=== PATIENT | female | born 1955 | race Caucasian/White ===

== ENCOUNTER 2017-03-10 12:56 | Emergency (ER) | payer BC, MEDICARE ==
[~2017-03-10] VITALS: Ht 157.5 cm; Wt 58.8 kg
[~2017-03-10 12:56] MED LIST: CITA40TA12 PO; GABA100C8 PO; MORP10CA10 PO; TRAM50TA2 PO
[2017-03-10] MEDS ORDERED: DEXAMETHASONE 4 MG/ML, 1ML ONE ×3 (13:41→13:50)
[2017-03-10] MEDS ORDERED: DEXAMETHASONE 4 MG/ML, 1ML PO ONE (14:00)
[2017-03-10 15:10] LABS: PATH.CAST-FLAG NOT PRESENT; SPERM-FLAG NOT PRESENT; SRC-FLAG NOT PRESENT; XTAL-FLAG NOT PRESENT; YLC-FLAG NOT PRESENT
[2017-03-10 15:49] VITALS: BP 120/78
== END 2017-03-10 15:53 | disposition home or self-care (01) ==
LOC: ED 14:36
DX: J20.9 Acute bronchitis, unspecified (principal); N30.00 Acute cystitis without hematuria; B37.3 Candidiasis of vulva and vagina; B96.89 Other specified bacterial agents as the cause of diseases classified elsewhere; K21.9 Gastro-esophageal reflux disease without esophagitis; M19.90 Unspecified osteoarthritis, unspecified site
CPT/HCPCS: 71020; 81001; 87077; 87086; 99285; J1100; 87186

== ENCOUNTER 2017-05-31 16:42 | Emergency (ER) | payer BC, MEDICARE ==
[~2017-05-31] VITALS: Ht 157.5 cm; Wt 57.0 kg
[~2017-05-31 16:42] MED LIST changes: +GABA-826 PO; -GABA100C8 PO
[2017-05-31] MEDS ORDERED: HYDROmorphone 1 MG/ML, 1ML ONE (17:47)
[2017-05-31] MEDS ORDERED: HYDROmorphone 1 MG/ML, 1ML IM PRN (18:00)
[2017-05-31 18:11] VITALS: BP 134/82
== END 2017-05-31 18:13 | disposition home or self-care (01) ==
LOC: ED 18:07
DX: G89.29 Other chronic pain (principal); M54.5 Low back pain; M54.32 Sciatica, left side; M54.31 Sciatica, right side; K21.9 Gastro-esophageal reflux disease without esophagitis; Z90.49 Acquired absence of other specified parts of digestive tract; Z90.710 Acquired absence of both cervix and uterus
CPT/HCPCS: 96372; 99283; J1170

== ENCOUNTER 2018-11-15 17:15 | Observation (INO) | payer BC, MEDICARE ==
[~2018-11-15] VITALS: Ht 157.5 cm; Wt 66.3 kg
[~2018-11-15 17:15] MED LIST changes: -CITA40TA12 PO; +IBUP-1623 PO; +NAPR220C2 PO
[2018-11-15 18:20] LABS: MICROSCOPIC AUTO
[2018-11-15 18:26] LABS: BASOPHILS # (AUTO) 0.03 x10^3/uL (0-0.1); BASOPHILS % (AUTO) 0 % (0-1); EOSINOPHILS % (AUTO) 2 % (1-7); LYMPHOCYTES # (AUTO) 2.74 x10^3/uL (1-3.4); LYMPHOCYTES % (AUTO) 32 % (22-44); MD NO; MEAN CORPUSCULAR HEMOGLOBIN 31.5 pg (27.0-34.8); MEAN CORPUSCULAR HGB CONC 34.4 g/dL (32.4-35.8); MEAN CORPUSCULAR VOLUME 91.6 fL (80-100); MEAN PLATELET VOLUME 8.1 fL (7.4-10.4); MONOCYTES # (AUTO) 0.54 x10^3/uL (0.2-0.8); MONOCYTES % (AUTO) 6 % (2-9); NEUTROPHILS # (AUTO) 4.96 x10^3/uL (1.8-6.8); NEUTROPHILS % (AUTO) 59 % (42-75); PLATELET COUNT 303 x10^3/uL (130-400); RED BLOOD COUNT 4.02 x10^6/uL (3.82-5.3); RED CELL DISTRIBUTION WIDTH 12.3 % (9.6-15.2)
[2018-11-15 18:26] LABS: CULTURE INDICATED? YES
[2018-11-15 18:37] LABS: ALBUMIN 3.7 g/dL (3.4-5.0); ANION GAP 6 mmol/L (5-15); CALCIUM 8.9 mg/dL (8.5-10.1); CHLORIDE 105 mmol/L (98-107); CREATININE 0.67 mg/dL (0.55-1.02); INTERNATIONAL NORMALIZED RATIO 0.95 (0.93-1.1); PROTHROMBIN TIME 10.1 Seconds (9.6-11.5)
[2018-11-15 18:40] LABS: TROPONIN I < 0.015 ng/mL (0.000-0.045)
--- NOTE | 2018-11-15 18:56 | NUR ---
REPORT GIVEN TO ROBERTO
--- NOTE | 2018-11-15 19:03 | NUR ---
DR LINDSEY AT BEDSIDE UPDATING PT ON POC
[2018-11-15] MEDS ORDERED: KETOROLAC 30 MG/1 ML IV PRN (20:00)
[2018-11-15] MEDS ORDERED: DOCUSATE 100 MG CAPSULE PO PRN (20:00)
[2018-11-15] MEDS ORDERED: NITROGLYCERIN 0.4 MG BOTTLE (25 TABS) SL PRN (20:00)
[2018-11-15] MEDS ORDERED: TEMAZEPAM 15 MG CAPSULE PO PRN (20:00)
[2018-11-15] MEDS ORDERED: ONDANSETRON 2MG/ML, 2ML IVPush PRN (20:00)
[2018-11-15] MEDS ORDERED: LIDODERM 5% PATCH TD PRN (20:00)
[2018-11-15] MEDS ORDERED: LABETALOL 5MG/ML, 20ML IVPush PRN (20:00)
[2018-11-15] MEDS ORDERED: ENOXAPARIN 40 MG/0.4 ML SQ SCH (20:00)
--- NOTE | 2018-11-15 20:09 | NUR ---
REPORT GIVEN TO GUNNAR MCELROY
[2018-11-15] MEDS: ACETAMINOPHEN 325 MG TABLET PO PRN (21:33)
[2018-11-15] MEDS: CITALOPRAM 20 MG TABLET PO SCH (21:33)
[2018-11-15] MEDS: GABAPENTIN 300 MG CAPSULE PO SCH (21:33)
[2018-11-15 21:50] VITALS: BP 137/88
[2018-11-16 00:22] VITALS: BP 116/72
[2018-11-16 01:22] LABS: TROPONIN I < 0.015 ng/mL (0.000-0.045)
[2018-11-16] MEDS: ACETAMINOPHEN 325 MG TABLET PO PRN (05:22)
[2018-11-16 07:07] VITALS: BP 110/73
[2018-11-16 07:36] LABS: TROPONIN I < 0.015 ng/mL (0.000-0.045)
[2018-11-16] MEDS ORDERED: REGADENOSON 0.4 MG/5 ML SYRINGE ONE (08:11)
[2018-11-16] MEDS: CITALOPRAM 20 MG TABLET PO SCH (08:42)
[2018-11-16] MEDS: GABAPENTIN 300 MG CAPSULE PO SCH (08:42)
[2018-11-16] MEDS ORDERED: CITA40TA12 PO (21:56)
== END 2018-11-16 13:59 | disposition home or self-care (01) ==
LOC: ED 18:33 → EDIP 19:05 → UNDOADMOB 19:05 → INTOOBSV 19:05 → OBSVTOIN 19:05 → EDIP 19:46 → 5SO 20:22 → EDIP 20:22 → UNDODISOB 11-16 13:59
PROVIDERS: ADMIT Hospitalist; ATTEND Hospitalist
DX: R07.89 Other chest pain (principal); F33.0 Major depressive disorder, recurrent, mild; K21.9 Gastro-esophageal reflux disease without esophagitis; K58.9 Irritable bowel syndrome, unspecified; L29.9 Pruritus, unspecified; Z82.3 Family history of stroke; Z80.42 Family history of malignant neoplasm of prostate; Z87.440 Personal history of urinary (tract) infections; Z87.891 Personal history of nicotine dependence; Z90.710 Acquired absence of both cervix and uterus
CPT/HCPCS: 36415; 71045; 78452; 80048; 81001; 82040; 83880; 84484; 85025; 85610; 85730; 87086; 90471; 90656; 93005; 93017; 93306; 96372; 99284; A9502; C9898; G0378; J1650; J2785; 99285

== ENCOUNTER 2019-10-23 17:47 | Emergency (ER) | payer BC, MEDICARE ==
[~2019-10-23] VITALS: Ht 157.5 cm; Wt 68.0 kg
[~2019-10-23 17:47] MED LIST changes: +CITA40TA12 PO
[2019-10-23 18:23] VITALS: BP 115/89
[2019-10-23] MEDS ORDERED: ALBUTEROL/IPRATROPIUM 2.5MG/0.5MG, 3 ML NPPB ONE (18:30)
[2019-10-23] MEDS ORDERED: ALBU18HF INH (18:32)
[2019-10-23 19:00] LABS: RAPID INFLUENZA A Negative (Negative); RAPID INFLUENZA B Negative (Negative)
== END 2019-10-23 20:17 | disposition home or self-care (01) ==
LOC: ED 19:56
DX: J45.901 Unspecified asthma with (acute) exacerbation (principal); J00 Acute nasopharyngitis [common cold]; J20.9 Acute bronchitis, unspecified; K21.9 Gastro-esophageal reflux disease without esophagitis; Z87.891 Personal history of nicotine dependence
CPT/HCPCS: 71046; 87081; 87400; 87880; 94640; 99284; J7620

== ENCOUNTER 2020-02-01 20:20 | Emergency (ER) | payer BC, MEDICARE ==
[~2020-02-01] VITALS: Ht 157.5 cm; Wt 69.1 kg
[~2020-02-01 20:20] MED LIST changes: +ALBU18HF INH
--- NOTE | 2020-02-01 20:42 | NUR ---
RASH ON BUTT AND L THIGH. NEW DETERGENT LATELYL. SEEN AT , GIVEN PREDNISONE, STEROID, BENADRYL. ALSO R LQ ABD PAIN. GIVEN ABX FOR BLADDER INFECTION FROM PRIMARY CARE. ALSO C/O COUGH THAT STARTED THIS AM. A&OX4 GCS 15. NO SOB. CALL MOS[facility]A IN REACH. SAUL CHRISTIAN IN ROOM FOR EVAL.
[2020-02-01] MEDS ORDERED: HYDROcodone/APAP 5/325 TABLET PO ONE (21:00)
[2020-02-01] MEDS ORDERED: SODIUM CHLORIDE FLUSH 10ML SYR IVF ONE (21:00)
[2020-02-01] MEDS ORDERED: HYDROcodone/APAP 5/325 TABLET ONE (21:05)
--- NOTE | 2020-02-01 21:16 | NUR ---
CT PENDING LAB/CREATINE.
[2020-02-01 21:41] LABS: BASOPHILS # (AUTO) 0.03 x10^3/uL (0-0.1); BASOPHILS % (AUTO) 0 % (0-1); EOSINOPHILS % (AUTO) 2 % (1-7); LYMPHOCYTES # (AUTO) 2.62 x10^3/uL (1-3.4); LYMPHOCYTES % (AUTO) 25 % (22-44); MD NO; MEAN CORPUSCULAR HEMOGLOBIN 30.7 pg (27.0-34.8); MEAN CORPUSCULAR HGB CONC 33.6 g/dL (32.4-35.8); MEAN CORPUSCULAR VOLUME 91.4 fL (80-100); MEAN PLATELET VOLUME 8.9 fL (7.4-10.4); MONOCYTES # (AUTO) 0.57 x10^3/uL (0.2-0.8); MONOCYTES % (AUTO) 6 % (2-9); NEUTROPHILS % (AUTO) 67 % (42-75); PLATELET COUNT 246 x10^3/uL (130-400); RED BLOOD COUNT 3.99 x10^6/uL (3.82-5.3); RED CELL DISTRIBUTION WIDTH 13.1 % (9.6-15.2)
[2020-02-01 21:43] LABS: MICROSCOPIC AUTO
[2020-02-01 21:46] LABS: CULTURE INDICATED? YES
[2020-02-01 21:51] LABS: ALANINE AMINOTRANSFERASE 25 U/L (12-78); ALBUMIN 3.5 g/dL (3.4-5.0); ANION GAP 7 mmol/L (5-15); CALCIUM 8.4 mg/dL (8.5-10.1); CHLORIDE 106 mmol/L (98-107); CREATININE 0.73 mg/dL (0.55-1.02)
[2020-02-01 21:53] LABS: ALKALINE PHOSPHATASE 97 U/L (45-117); BILIRUBIN,TOTAL 0.1 mg/dL (0.2-1.0); TOTAL PROTEIN 7.3 g/dL (6.4-8.2)
--- NOTE | 2020-02-01 21:53 | NUR ---
report to martha rose. as
--- NOTE | 2020-02-01 21:54 | NUR ---
REPORT RECEIVED FROM GUNNAR SMITH. PLAN OF CARE DISCUSSED
[2020-02-01] MEDS ORDERED: OMNIPAQUE 350 MG/ML, 100ML BOTTLE ONE (22:38)
--- NOTE | 2020-02-01 22:56 | NUR ---
PATIENT RESTING ON GURNEY, RESPIRATIONS EVEN AND UNLABORED. VSS, NAD
[2020-02-01 23:15] VITALS: BP 110/59
[2020-02-01] MEDS ORDERED: FAMOTIDINE 20 MG TABLET ONE (23:28)
[2020-02-01] MEDS ORDERED: FAMOTIDINE 20 MG TABLET PO ONE (23:30)
--- NOTE | 2020-02-01 23:34 | NUR ---
PIV REMOVED, PATIENT MEDICATED PER EMAR, TOLERATED WELL
--- NOTE | 2020-02-01 23:42 | NUR ---
Patient given discharge instructions and they have confirmed that they understand the instructions. Patient ambulatory with steady gait.
== END 2020-02-01 23:44 | disposition home or self-care (01) ==
LOC: ED 21:01
DX: R21 Rash and other nonspecific skin eruption (principal); R10.9 Unspecified abdominal pain; T78.40XA Allergy, unspecified, initial encounter; Z87.891 Personal history of nicotine dependence; Z90.89 Acquired absence of other organs; Z90.49 Acquired absence of other specified parts of digestive tract; Z90.710 Acquired absence of both cervix and uterus; X58.XXXA Exposure to other specified factors, initial encounter
CPT/HCPCS: 36415; 71045; 74177; 80053; 81001; 83690; 85025; 87086; 99285; Q9967

== ENCOUNTER 2020-06-20 13:19 | Emergency (ER) | payer BC, MEDICARE ==
[~2020-06-20] VITALS: Ht 157.5 cm; Wt 65.9 kg
[2020-06-20 13:20] VITALS: BP 137/72
[2020-06-20 14:15] LABS: BASOPHILS # (AUTO) 0.08 x10^3/uL (0-0.1); BASOPHILS % (AUTO) 1 % (0-1); EOSINOPHILS # (AUTO) 0.21 x10^3/uL (0-0.4); EOSINOPHILS % (AUTO) 3 % (1-7); LYMPHOCYTES # (AUTO) 2.21 x10^3/uL (1-3.4); LYMPHOCYTES % (AUTO) 31 % (22-44); MD NO; MEAN CORPUSCULAR HEMOGLOBIN 30.4 pg (27.0-34.8); MEAN CORPUSCULAR HGB CONC 32.9 g/dL (32.4-35.8); MEAN CORPUSCULAR VOLUME 92.6 fL (80-100); MEAN PLATELET VOLUME 8.8 fL (7.4-10.4); MONOCYTES # (AUTO) 0.54 x10^3/uL (0.2-0.8); MONOCYTES % (AUTO) 8 % (2-9); NEUTROPHILS # (AUTO) 4.15 x10^3/uL (1.8-6.8); NEUTROPHILS % (AUTO) 58 % (42-75); PLATELET COUNT 253 x10^3/uL (130-400); RED BLOOD COUNT 4.26 x10^6/uL (3.82-5.3); RED CELL DISTRIBUTION WIDTH 12.4 % (9.6-15.2)
[2020-06-20 14:27] LABS: ALANINE AMINOTRANSFERASE 26 U/L (12-78); ALBUMIN 3.4 g/dL (3.4-5.0); ANION GAP 5 mmol/L (5-15); CALCIUM 8.3 mg/dL (8.5-10.1); CHLORIDE 107 mmol/L (98-107); CREATININE 0.66 mg/dL (0.55-1.02)
[2020-06-20 14:29] LABS: ALKALINE PHOSPHATASE 99 U/L (45-117); BILIRUBIN,TOTAL 0.3 mg/dL (0.2-1.0); TOTAL PROTEIN 7.3 g/dL (6.4-8.2)
[2020-06-20 15:04] LABS: MICROSCOPIC AUTO
== END 2020-06-20 16:26 | disposition home or self-care (01) ==
LOC: ED 14:11
DX: N30.00 Acute cystitis without hematuria (principal); R10.11 Right upper quadrant pain; G89.29 Other chronic pain; M43.17 Spondylolisthesis, lumbosacral region; M51.34 Other intervertebral disc degeneration, thoracic region; M43.27 Fusion of spine, lumbosacral region; K21.9 Gastro-esophageal reflux disease without esophagitis; J45.909 Unspecified asthma, uncomplicated; Z90.49 Acquired absence of other specified parts of digestive tract; Z90.710 Acquired absence of both cervix and uterus
CPT/HCPCS: 36415; 72072; 72110; 74018; 80053; 81001; 83690; 85025; 87086; 93005; 99285

== ENCOUNTER 2020-08-26 15:45 | Emergency (ER) | payer BC, MEDICARE ==
[~2020-08-26] VITALS: Ht 157.5 cm; Wt 66.8 kg
--- NOTE | 2020-08-26 16:26 | NUR ---
PA-Shira HAS EVALUATED IN TRIAGE
--- NOTE | 2020-08-26 16:26 | NUR ---
EKG IN TRIAGE
[2020-08-26 16:44] LABS: BASOPHILS % (AUTO) 1 % (0-1); EOSINOPHILS % (AUTO) 3 % (1-7); LYMPHOCYTES % (AUTO) 29 % (22-44); MEAN CORPUSCULAR HEMOGLOBIN 31.1 pg (27.0-34.8); MEAN CORPUSCULAR HGB CONC 33.7 g/dL (32.4-35.8); MEAN PLATELET VOLUME 8.3 fL (7.4-10.4); MONOCYTES % (AUTO) 7 % (2-9); NEUTROPHILS % (AUTO) 60 % (42-75); PLATELET COUNT 293 x10^3/uL (130-400); RED CELL DISTRIBUTION WIDTH 12.6 % (9.6-15.2)
[2020-08-26 16:46] LABS: MD NO
[2020-08-26 16:54] LABS: ALANINE AMINOTRANSFERASE 29 U/L (12-78); ALBUMIN 3.7 g/dL (3.4-5.0); ANION GAP 3 mmol/L (5-15); CALCIUM 8.8 mg/dL (8.5-10.1); CHLORIDE 106 mmol/L (98-107)
[2020-08-26 16:57] LABS: ALKALINE PHOSPHATASE 115 U/L (45-117); BILIRUBIN,TOTAL 0.3 mg/dL (0.2-1.0); TOTAL PROTEIN 8.2 g/dL (6.4-8.2)
--- NOTE | 2020-08-26 18:25 | NUR ---
TO ROOM FROM LOBBY. NAD.
--- NOTE | 2020-08-26 18:52 | NUR ---
UA COLLECTED AND SENT
--- NOTE | 2020-08-26 18:55 | NUR ---
THIS IS A 64 YO FEMALE COMING IN WITH C/O LIGHTHEADEDNESS, OCCASIONAL COUGHING, HEADACHE, "MY KIDNEYS HURT AND I THINK I HAVE A BLADDER INFECTION", AND SORE THROAT X APPROX 1 WEEK. PATIENT C/O DYSURIA, LEFT SIDED FLANK PAIN TENDER TO PALPATION. A&OX4, ALL MONITORING IN PLACE, VSS, NADN.
[2020-08-26 18:57] LABS: MICROSCOPIC NOT IND
--- NOTE | 2020-08-26 19:05 | NUR ---
ALL RESULTS BACK, PATIENT UP FOR RECHECK
[2020-08-26 20:15] VITALS: BP 126/71
--- NOTE | 2020-08-26 20:15 | NUR ---
Patient given discharge instructions and they have confirmed that they understand the instructions. Patient ambulatory with steady gait.
== END 2020-08-26 20:19 | disposition home or self-care (01) ==
LOC: ED 15:50
DX: S39.012A Strain of muscle, fascia and tendon of lower back, initial encounter (principal); J45.909 Unspecified asthma, uncomplicated; K21.9 Gastro-esophageal reflux disease without esophagitis; R00.0 Tachycardia, unspecified; Z90.49 Acquired absence of other specified parts of digestive tract; Z87.891 Personal history of nicotine dependence; X58.XXXA Exposure to other specified factors, initial encounter; Y93.89 Activity, other specified; Y92.89 Other specified places as the place of occurrence of the external cause; Y99.8 Other external cause status
CPT/HCPCS: 36415; 71045; 80053; 81003; 85025; 87081; 87880; 93005; 99285

== ENCOUNTER 2020-11-06 07:06 | Emergency (ER) | payer BC, MEDICARE ==
[~2020-11-06] VITALS: Ht 154.9 cm; Wt 68.0 kg
[2020-11-06] MEDS ORDERED: KETOROLAC 30 MG/1 ML ONE (07:23)
[2020-11-06] MEDS ORDERED: ONDANSETRON 2MG/ML, 2ML ONE (07:24)
[2020-11-06] MEDS ORDERED: SODIUM CHLORIDE 0.9% 1,000ML IVBOLUS ONE (07:30)
[2020-11-06] MEDS ORDERED: ONDANSETRON 2MG/ML, 2ML IVPush ONE (07:30)
[2020-11-06] MEDS ORDERED: KETOROLAC 30 MG/1 ML IVPush ONE (07:30)
[2020-11-06] MEDS ORDERED: SODIUM CHLORIDE FLUSH 10ML SYR IVF ONE (07:30)
[2020-11-06 07:56] LABS: BASOPHILS % (AUTO) 1 % (0-1); EOSINOPHILS % (AUTO) 4 % (1-7); LYMPHOCYTES % (AUTO) 30 % (22-44); MEAN CORPUSCULAR HEMOGLOBIN 31.1 pg (27.0-34.8); MEAN CORPUSCULAR HGB CONC 33.7 g/dL (32.4-35.8); MEAN PLATELET VOLUME 8.2 fL (7.4-10.4); MONOCYTES % (AUTO) 7 % (2-9); NEUTROPHILS % (AUTO) 58 % (42-75); PLATELET COUNT 301 x10^3/uL (130-400); RED BLOOD COUNT 4.35 x10^6/uL (3.82-5.3); RED CELL DISTRIBUTION WIDTH 12.8 % (9.6-15.2)
[2020-11-06 07:57] LABS: MD NO
[2020-11-06 08:09] LABS: ALBUMIN 3.7 g/dL (3.4-5.0); ANION GAP 6 mmol/L (5-15); CALCIUM 8.9 mg/dL (8.5-10.1); CHLORIDE 108 mmol/L (98-107)
[2020-11-06 08:13] LABS: ALANINE AMINOTRANSFERASE 24 U/L (12-78); ALKALINE PHOSPHATASE 110 U/L (45-117); BILIRUBIN,TOTAL 0.3 mg/dL (0.2-1.0); CREATININE 0.86 mg/dL (0.55-1.02); TOTAL PROTEIN 7.9 g/dL (6.4-8.2)
[2020-11-06 08:22] VITALS: BP 116/71
--- NOTE | 2020-11-06 08:22 | NUR ---
MINIMAL IMPROVEMENT IN PAIN SINCE MEDICATED. AMBULATED TO BATHROOM WITHOUT ASSISTANCE
[2020-11-06 08:40] LABS: MICROSCOPIC NOT IND
--- NOTE | 2020-11-06 10:03 | NUR ---
PT GIVEN DISCHARGE PAPERS AFTER DISCUSSING RESULTS OF TESTS WITH MD AND DISCHARGE PLANNING. AMBULATED TO DISCHARGE WINDOW STEADY GAIT
== END 2020-11-06 10:05 | disposition home or self-care (01) ==
LOC: ED 09:09
DX: K59.00 Constipation, unspecified (principal); R10.12 Left upper quadrant pain; R10.32 Left lower quadrant pain; M46.1 Sacroiliitis, not elsewhere classified; J45.909 Unspecified asthma, uncomplicated; K21.9 Gastro-esophageal reflux disease without esophagitis; Z90.49 Acquired absence of other specified parts of digestive tract; Z90.710 Acquired absence of both cervix and uterus; Z87.891 Personal history of nicotine dependence
CPT/HCPCS: 36415; 74176; 80053; 81003; 83690; 85025; 96361; 96374; 96375; 99284; J1885; J2405; J7030